=== PATIENT | male | born 1995 | race American Indian/Alaskan Native ===

== ENCOUNTER 2016-10-21 07:12 | Emergency (ER) | payer OTHER ==
[2016-10-21 07:20] VITALS: BP 144/82
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
== END 2016-10-21 08:05 | disposition home or self-care (01) ==
LOC: ED 07:12
DX: M54.5 Low back pain (principal); F17.200 Nicotine dependence, unspecified, uncomplicated; F12.10 Cannabis abuse, uncomplicated; V89.2XXA Person injured in unspecified motor-vehicle accident, traffic, initial encounter; Y93.89 Activity, other specified; Y99.8 Other external cause status; Y92.89 Other specified places as the place of occurrence of the external cause
CPT/HCPCS: 99283